=== PATIENT | female | born 1995 | race American Indian/Alaskan Native ===

== ENCOUNTER 2018-06-28 18:35 | Emergency (ER) | payer OTHER ==
[2018-06-28 18:47] VITALS: BP 151/69
[2018-06-28 21:31] LABS: HCG Qualitative,Urine Negative (Negative)
[2018-06-28] MEDS ORDERED: DECADRON IM ONE (22:01)
[2018-06-28] MEDS ORDERED: BENADRYL PO ONE (22:01)
[2018-06-28] MEDS ORDERED: TYLENOL PO ONE (22:01)
[2018-06-28] MEDS ORDERED: REGLAN PO ONE (22:01)
--- NOTE | 2018-06-28 22:23 | Emergency Department Report ---
ED Headache HPI - General Chief Complaint: Headache Stated Complaint: CHEST/HEAD PAIN Time Seen by Provider: 06/28/18 21:58 - History of Present Illness Initial Comments: Patient 3-year-old female who presents for recurrent headache left shinto radiating to frontal the past month and a half patient states similar headaches in the past and same location and same intensity are described as 5/10 and aching sharp movement and activity pain relieved by rest patient denies fevers or chills there's no photophobia there is no nausea vomiting and no decrease in vision no dizziness or lightheadedness Quality: moderate Head Injury Location: temporal (left ) Recent Head Trauma: no recent headache/trauma, occasional headaches Modifying Factors: improves with: rest Associated Symptoms: denies symptoms Allergies/Adverse Reactions: Allergies No Known Allergies Allergy (Unverified 06/28/18 18:36) Home Medications: Ambulatory Orders Acetaminophen [Tylenol Extra Strength] 1,000 mg PO QID PRN #30 tablet 06/28/18 Metoclopramide [Reglan] 10 mg PO Q6H PRN #30 tablet 06/28/18 diphenhydrAMINE [Benadryl CAP] 25 mg PO Q6HR PRN #30 capsule 06/28/18 ED Review of Systems ROS: Stated complaint: CHEST/HEAD PAIN Other details as noted in HPI Constitutional: denies: chills, fever Eyes: denies: eye pain, eye discharge, vision change ENT: denies: ear pain, throat pain Respiratory: no symptoms reported Cardiovascular: as per HPI Endocrine: no symptoms reported Gastrointestinal: denies: abdominal pain, nausea, diarrhea Genitourinary: denies: urgency, dysuria, discharge Musculoskeletal: denies: back pain, joint swelling, arthralgia Skin: denies: rash, lesions Neurological: headache. denies: numbness, paresthesias, confusion, abnormal gait, vertigo Psychiatric: denies: anxiety, depression Hematological/Lymphatic: denies: easy bleeding, easy bruising ED Past Medical Hx - Past Medical History Previous Medical History?: No - Surgical History Past Surgical History?: No - Social History Smoking Status: Never Smoker Substance Use Type: None - Medications Home Medications: Home Medications Medication Instructions Recorded Confirmed Last Taken Type Acetaminophen [Tylenol Extra 1,000 mg PO QID PRN #30 tablet 06/28/18 Unknown Rx Strength] Metoclopramide [Reglan] 10 mg PO Q6H PRN #30 tablet 06/28/18 Unknown Rx diphenhydrAMINE [Benadryl CAP] 25 mg PO Q6HR PRN #30 capsule 06/28/18 Unknown Rx ED Physical Exam - General Limitations: No Limitations General appearance: alert, in no apparent distress - Head Head exam: Present: atraumatic, normocephalic - Eye Eye exam: Present: normal appearance, PERRL, EOMI Pupils: Present: normal accommodation - ENT ENT exam: Present: normal exam, normal orophraynx, mucous membranes moist, TM's normal bilaterally, normal external ear exam - Neck Neck exam: Present: normal inspection, full ROM. Absent: tenderness, lymphadenopathy, thyromegaly - Expanded Neck Exam Expanded Neck exam: Absent: tenderness, midline deformity, anterior neck swelling, thyroid mass, carotid bruit, tracheal deviation - Respiratory Respiratory exam: Present: normal lung sounds bilaterally. Absent: respiratory distress, wheezes, stridor, chest wall tenderness - Cardiovascular Cardiovascular Exam: Present: regular rate, normal rhythm, normal heart sounds. Absent: systolic murmur, diastolic murmur, rubs, gallop - GI/Abdominal GI/Abdominal exam: Present: soft, normal bowel sounds. Absent: tenderness, rebound - Rectal Rectal exam: Present: deferred - Extremities Exam Extremities exam: Present: normal inspection - Back Exam Back exam: Present: normal inspection, full ROM. Absent: tenderness, CVA tenderness (R), CVA tenderness (L), rash noted - Neurological Exam Neurological exam: Present: alert, oriented X3, CN II-XII intact, normal gait, reflexes normal - Expanded Neurological Exam Expanded Patient oriented to: Present: person, place, time Speech: Present: fluid speech Cranial nerves: EOM's Intact: Normal, Gag Reflex: Normal, Tongue Deviation: Normal, Nystagmus: Normal, Facial Sensation: Normal Cerebellar function: Finger to Nose: Normal, Heel to George: Normal, Romberg: Normal Upper motor neuron: Todd Neglect: Normal, Pronator Drift: Normal, Babinski Sign: Normal, Sensory Extinction: Normal Sensory exam: Upper Extremity Light Touch: Normal, Upper Extremity Pin Prick: Normal, Upper Extremity Temperature: Normal, UE 2 Point Discrimination: Normal, Lower Extremity Light Touch: Normal, Lower Extremity Pin Prick: Normal, Lower E xtremity Temperature: Normal, LE 2 Point Discrimination: Normal Motor strength exam: RUE: 5, LUE: 5, RLE: 5, LLE: 5 DTR: bicep (R): 2+, bicep (L): 2+, ankle (R): 2+, ankle (L): 2+ Best Eye Response (Rhiannon): (4) open spontaneously Best Motor Response ([place]): (6) obeys commands Best Verbal Response ([place]): (5) oriented Rhiannon Total: 15 - Psychiatric Psychiatric exam: Present: normal affect (Tachycardia), normal mood - Skin Skin exam: Present: warm, dry, intact, normal color. Absent: rash ED Course Vital Signs 06/28/18 06/28/18 06/28/18 18:45 19:34 22:14 Temperature 98.2 F 98.2 F Pulse Rate 93 H 93 H Respiratory 20 18 18 Rate Blood Pressure 151/69 Blood Pressure 151/69 [Right] O2 Sat by Pulse 99 99 Oximetry ED Medical Decision Making - Medical Decision Making headache improved there are no neuro deficits plan: Tylenol, reglan, benadryl, pt will follow up with pcp in 2 days given referral to urology as requested as she has not followed up with neurology in 2 yrs Critical care attestation.: If time is entered above; I have spent that time in minutes in the direct care of this critically ill patient, excluding procedure time. ED Disposition Clinical Impression: Headache Qualifiers: Headache type: unspecified Headache chronicity pattern: acute headache Intractability: not intractable Qualified Code(s): R51 - Headache Disposition: - TO HOME OR SELFCARE Is pt being admited?: No Does the pt Need Aspirin: No Condition: Stable Instructions: Acute Headache (ED) Prescriptions: diphenhydrAMINE [Benadryl CAP] 25 mg PO Q6HR PRN #30 capsule PRN Reason: Headache Metoclopramide [Reglan] 10 mg PO Q6H PRN #30 tablet PRN Reason: Headache Acetaminophen [Tylenol Extra Strength] 1,000 mg PO QID PRN #30 tablet PRN Reason: Headache [facility] [Primary Care Provider[facility] - 3-5 Days RADHA GREEN MD [Staff Physician] - 3-5 Days Forms: Work/School Release Form(ED) Time of Disposition: 22:29
== END 2018-06-28 22:37 | disposition home or self-care (01) ==
LOC: ED 18:35
DX: R51 Headache (principal)
CPT/HCPCS: 81025; 96372; 99283; J1100

== ENCOUNTER 2020-05-29 00:57 | Emergency (ER) | payer SELFPAY ==
--- NOTE | 2020-05-29 02:09 | XRay Report ---
CHEST 2 VIEWS INDICATION / CLINICAL INFORMATION: chestpain. COMPARISON: None available. FINDINGS: SUPPORT DEVICES: None. HEART / MEDIASTINUM: No significant abnormality. LUNGS / PLEURA: No significant pulmonary or pleural abnormality. No pneumothorax. ADDITIONAL FINDINGS: No significant additional findings. IMPRESSION: 1. No acute findings. Signer Name: Adolfo Mitchell MD Signed: 05/29/2020 2:04 AM Workstation Name: [id number]
--- NOTE | 2020-05-29 02:44 | Emergency Department Report ---
ED Chest Pain HPI - General Chief Complaint: Chest Pain Stated Complaint: CHEST PAIN Time Seen by Provider: 05/29/20 02:03 Source: patient Mode of arrival: Ambulatory Limitations: No Limitations - History of Present Illness Initial Comments: 25-year-old female presents to ED with complaint of chest pain x3 weeks. Patient reports pain has been intermittent, left-sided, sharp in nature. Patient states the pain will last for approximately 5 minutes at a time. Pain is not associated with exertion. Patient states sometimes the pain will come as she is showering or just sitting around. She denies any associated shortness of breath, nausea or vomiting, leg pain or swelling, cough or fever. Patient denies any chest pain at this time. MD Complaint: chest pain -: week(s) (3) Onset: during rest Pain Location: left chest Pain Radiation: none Severity: moderate Quality: sharp Consistency: intermittent Improves With: nothing Worsens With: nothing re: denies: nausea, vomting, diaphoresis, dyspnea Other Symptoms: denies: cough, fever, syncope, leg swelling - Related Data Previous Rx's Medication Instructions Recorded Last Taken Type Acetaminophen [Tylenol Extra 1,000 mg PO QID PRN #30 tablet 06/28/18 Unknown Rx Strength] Metoclopramide [Reglan] 10 mg PO Q6H PRN #30 tablet 06/28/18 Unknown Rx diphenhydrAMINE [Benadryl CAP] 25 mg PO Q6HR PRN #30 capsule 06/28/18 Unknown Rx Allergies Allergy/AdvReac Type Severity Reaction Status Date / Time No Known Allergies Allergy Unverified 06/28/18 18:36 Heart Score - HEART Score History: Slightly suspicious EKG: Non-specific Age: < 45 Risk factors: 1-2 risk factors Troponin: < normal limit HEART Score: 2 ED Review of Systems ROS: Stated complaint: CHEST PAIN Other details as noted in HPI Comment: All other systems reviewed and negative Constitutional: denies: chills, fever Respiratory: denies: cough, shortness of breath Cardiovascular: chest pain Gastrointestinal: denies: nausea, vomiting Musculoskeletal: other (Denies leg pain or swelling) ED Past Medical Hx - Past Medical History Previous Medical History?: No - Surgical History Past Surgical History?: No - Social History Smoking Status: Never Smoker Substance Use Type: None - Medications Home Medications: Home Medications Medication Instructions Recorded Confirmed Last Taken Type Acetaminophen [Tylenol Extra 1,000 mg PO QID PRN #30 tablet 06/28/18 Unknown Rx Strength] Metoclopramide [Reglan] 10 mg PO Q6H PRN #30 tablet 06/28/18 Unknown Rx diphenhydrAMINE [Benadryl CAP] 25 mg PO Q6HR PRN #30 capsule 06/28/18 Unknown Rx ED Physical Exam - General Limitations: No Limitations General appearance: alert, in no apparent distress - Head Head exam: Present: atraumatic, normocephalic - Eye Eye exam: Present: normal appearance, EOMI - ENT ENT exam: Present: mucous membranes moist - Neck Neck exam: Present: normal inspection - Respiratory Respiratory exam: Present: normal lung sounds bilaterally. Absent: respiratory distress - Cardiovascular Cardiovascular Exam: Present: regular rate, normal rhythm - GI/Abdominal GI/Abdominal exam: Present: soft. Absent: distended, tenderness - Extremities Exam Extremities exam: Present: normal inspection. Absent: pedal edema, calf tenderness - Neurological Exam Neurological exam: Present: alert, oriented X3 - Psychiatric Psychiatric exam: Present: normal affect, normal mood - Skin Skin exam: Present: warm, dry, intact, normal color ED Course Vital Signs 05/29/20 05/29/20 01:05 04:09 Temperature 98.5 F 98.0 F Pulse Rate 62 67 Respiratory 20 16 Rate Blood Pressure 143/86 Blood Pressure 128/68 [Right] O2 Sat by Pulse 99 97 Oximetry ED Medical Decision Making - Lab Data Result diagrams: 05/29/20 02:20 05/29/20 02:20 - EKG Data -: EKG Interpreted by In EKG shows normal: sinus rhythm, axis, intervals, QRS complexes Rate: normal - EKG Data Interpretation: nonspecific ST-T wave manjula - Radiology Data Radiology results: report reviewed - Medical Decision Making EKG shows no ST changes. Troponin and D-dimer are normal. Chest x-ray is normal. Will discharge at this time. Outpatient follow-up advised, return pr ecautions given. - Differential Diagnosis ACS, atypical chest pain, PE Critical care attestation.: If time is entered above; I have spent that time in minutes in the direct care of this critically ill patient, excluding procedure time. ED Disposition Clinical Impression: Chest pain Disposition: DC-01 TO HOME OR SELFCARE Is pt being admited?: No Condition: Stable Instructions: Nonspecific Chest Pain, Adult, Chest Pain (ED) Referrals: PRIMARY CARE, [Primary Care Provider] - 3-5 Days [facility] [Provider Group] - 3-5 Days Time of Disposition: 03:58
[2020-05-29 02:52] LABS: Blood Urea Nitrogen 14 mg/dL (7-17); Hemolysis Index 3
[2020-05-29 02:54] LABS: BUN/Creatinine Ratio 20
[2020-05-29 02:56] LABS: Basophils % (Auto) 0.2 % (0.0-1.8); Eosinophils # (Auto) 0.2 K/mm3 (0.0-0.4); Eosinophils % (Auto) 2.9 % (0.0-4.3); Hemoglobin 12.8 gm/dl (10.1-14.3); Lymphocytes # (Auto) 3.8 K/mm3 (1.2-5.4); Lymphocytes % (Auto) 50.4 % (13.4-35.0); Monocytes # (Auto) 0.3 K/mm3 (0.0-0.8); Monocytes % (Auto) 4.6 % (0.0-7.3)
[2020-05-29 02:57] LABS: Hematocrit 38.1 % (30.3-42.9); Mean Corpuscular HGB Conc 34 % (30-34); Mean Corpuscular Volume 76 fl (79-97); Platelet Count 340 K/mm3 (140-440); Red Cell Distribution Width 16.6 % (13.2-15.2)
[2020-05-29 04:09] VITALS: BP 128/68
== END 2020-05-29 04:08 | disposition home or self-care (01) ==
LOC: ED 00:57
DX: R07.9 Chest pain, unspecified (principal); Z79.899 Other long term (current) drug therapy
CPT/HCPCS: 36415; 71046; 80048; 84484; 85025; 85379; 93005